=== PATIENT | male | born 1970 | race Hispanic/Latino ===

== ENCOUNTER 2020-03-13 10:41 | Emergency (ER) | payer BC ==
--- NOTE | 2020-03-13 11:33 | RAD ---
Chest one view HISTORY: Cough. COVID positive. COMPARISON: 07/14/2013. FINDINGS: Cardiac silhouette and pulmonary vasculature are unremarkable. Mediastinum is midline. Subtle ill-defined peripheral patchy areas of groundglass parenchymal opacity involve each lung, prim arily the upper lobes. No lobar consolidation or evidence of pneumothorax. IMPRESSION : Central patchy bilateral infiltrates, as often seen with COVID pneumonitis.
[2020-03-13] MEDS ORDERED: Dexamethasone 4 MG TAB ONE (12:05)
== END 2020-03-13 12:09 | disposition home or self-care (01) ==
LOC: ERS 10:41
DX: U07.1 COVID-19 (principal); J12.89 Other viral pneumonia
CPT/HCPCS: 71045; J8540